=== PATIENT | female | born 1985 | race Caucasian/White ===

== ENCOUNTER 2023-11-14 06:35 | Day surgery (SDC) | payer BC ==
[2023-11-14] VITALS (14 sets, daily range): BP systolic 109–143; BP diastolic 57–109
[~2023-11-14] VITALS: Ht 154.9 cm; Wt 127.1 kg
[~2023-11-14 06:35] MED LIST: HYDROCODONE-AC1 EA10 PO; IBUP600 PO; LEVSOD112 PO; ONDA4ODT MM; PROAIR RESPICL90 MCG INH; Vitamin D1000 UNI1 PO
[2023-11-14] MEDS ORDERED: Lactated Ringer's 1,000 ML IV SCH (06:50)
[2023-11-14] MEDS ORDERED: CeFAZolin Sodium 3,000 MG in NS 100 ML IV SCH (06:50)
[2023-11-14] MEDS ORDERED: Bupivacaine 0.5% HCl 5 MG/ML 30MLVIAL ONE (07:08)
--- NOTE | 2023-11-14 07:24 | NUR ---
Ambulatory in Day SurgeryPre-Op teaching done. Pt verbalizes understanding. History, Chart, Medications and Allergies reviewed before start of procedure.Patient confirms NPO status and agrees with scheduled surgery. Patient States Post-Procedure ride home has been arranged.
[2023-11-14] MEDS ORDERED: propofoL 100 ML IV ONE (08:36)
[2023-11-14] MEDS ORDERED: Rocuronium Bromide 10 MG/ML 5ML Injection IV ONE (08:41)
[2023-11-14] MEDS ORDERED: FentaNYL Citrate 50 MCG/ML 2 ML Injection ONE ×2 (08:42→11:01)
[2023-11-14] MEDS ORDERED: Midazolam HCl 1MG / ML 2ML Vial ONE (08:42)
[2023-11-14] MEDS ORDERED: Dexamethasone Sod Phos 10 MG/ML 1ML VIAL ONE (09:14)
[2023-11-14] MEDS ORDERED: Ondansetron HCl 2 MG / ML 2ML Vial ONE ×2 (09:14→11:00)
[2023-11-14] MEDS ORDERED: Ketorolac Tromethamine 30mg Vial ONE (09:14)
[2023-11-14] MEDS ORDERED: Sugammadex Sodium 200 MG/2ML SDV (100 MG/ML) ONE (09:14)
[2023-11-14] MEDS ORDERED: Labetalol HCL 5 MG/ML 4ML Injection (Single Dose) ONE (09:34)
[2023-11-14] MEDS ORDERED: propofoL 40 ML IV ONE (09:53)
[2023-11-14] MEDS ORDERED: HYDROcodone 5-APAP 325 TAB PO PRN (10:45)
--- NOTE | 2023-11-14 11:25 | NUR ---
PT TO DAY SURGERY STEP DOWN FROM PACU, BEDSIDE REPORT RECEIEVED. PT IS SLEEPY, BUT RESPONDS TO VOICE AND ABLE TO MOVE SELF IN BED. VSS. AFEBRILE. PT HAS 4 ABD INCISIONS SITES THAT ARE CLOSED WITH STERI STRIPS AND ARE C/D/I. PT HAS NO COMPLAINTS AT THIS TIME.
--- NOTE | 2023-11-14 11:55 | NUR ---
ICE PACK MADE FOR PT. PT DECLINES IT ON HER INCISIONS AT THIS TIME. INCISIONS REMAIN C/D/I. PT AT BEDSIDE.
--- NOTE | 2023-11-14 12:03 | NUR ---
PT AWAKE, PO FLUIDS GIVEN.
--- NOTE | 2023-11-14 12:10 | NUR ---
REPORT OFF TO KINA ORLANDO
--- NOTE | 2023-11-14 12:59 | NUR ---
REPORT TO YONG CASTANON.
--- NOTE | 2023-11-14 13:06 | NUR ---
Discharge instructions reviewed with patient. Patient verbalizes understanding. Copy given to patient to take home. Patient States Post-Procedure ride home has been arranged.
--- NOTE | 2023-11-14 13:19 | NUR ---
Patient up to Ambulate independently. Gait steady.
--- NOTE | 2023-11-14 13:23 | NUR ---
Discharged via wheelchair to private car for ride home.
== END 2023-11-14 13:24 | disposition home or self-care (01) ==
LOC: ORSCMMR 06:35 → ORD 08:45 → ORSCMMR 13:24
PROVIDERS: Surgery
PROC: 0FT44ZZ Resection of Gallbladder, Percutaneous Endoscopic Approach (ICD-10-PCS; principal; 2023-11-14 08:45)
DX: K80.12 Calculus of gallbladder with acute and chronic cholecystitis without obstruction (principal); J45.909 Unspecified asthma, uncomplicated; E03.9 Hypothyroidism, unspecified; E66.01 Morbid (severe) obesity due to excess calories; Z68.43 Body mass index [BMI] 50.0-59.9, adult; E28.2 Polycystic ovarian syndrome; Z79.899 Other long term (current) drug therapy
CPT/HCPCS: 88304; A9270; J0690; J1100; J1885; J2250; J2405; J2704; J3010; J7120

== ENCOUNTER 2024-03-28 12:56 | Emergency (ER) | payer BC ==
[~2024-03-28] VITALS: Ht 154.9 cm; Wt 132.4 kg
[2024-03-28 14:39] LABS: BASOPHILS ABSOLUTE AUTO 0.03 K/mm3 (0.00-0.23); BASOPHILS PERCENT AUTO 0 % (0-2); EOSINOPHILS ABSOLUTE AUTO 0.19 K/mm3 (0.00-0.68); EOSINOPHILS PERCENT AUTO 2 % (0-6); Hematocrit 36.7 % (33.0-51.0); IMMATURE GRAN ABSOLUTE AUTO 0.02 K/mm3 (0.00-0.10); IMMATURE GRAN PERCENT AUTO 0 % (0-1); LYMPHOCYTES ABSOLUTE AUTO 2.56 K/mm3 (0.84-5.20); LYMPHOCYTES PERCENT AUTO 31 % (21-46); MONOCYTES ABSOLUTE AUTO 0.51 K/mm3 (0.16-1.47); MONOCYTES PERCENT AUTO 6 % (4-13); Mean Corpuscular HGB 26.7 pg (26.0-34.0); Mean Corpuscular HGB Conc 32.7 g/dL (31.5-36.5); Mean Corpuscular Volume 82 fL (80-100); NEUTROPHILS ABSOLUTE AUTO 4.91 K/mm3 (1.96-9.15); NEUTROPHILS PERCENT AUTO 60 % (41-73); Platelet Count 329 K/mm3 (150-400); RDW Coefficient Variation 17.1 % (11.7-14.2); RDW Standard Deviation 50.8 fL (35.1-46.3); Red Blood Cell Count 4.49 M/mm3 (3.80-5.20); White Blood Cell Count 8.22 K/mm3 (4.00-11.30)
[2024-03-28 14:50] LABS: Albumin/Globulin Ratio 0.8 (0.8-1.8); Bilirubin, Total 0.3 mg/dL (0.1-1.0); Bun/Creatinine Ratio 17.3 (12.0-20.0); Calcium, Blood 9.1 mg/dL (8.5-10.1); Creatinine, Blood 0.81 mg/dL (0.40-1.00); Globulin, Blood 3.9 g/dL (2.2-4.0); Potassium, Blood 3.5 mmol/L (3.5-5.5); Total Protein, Blood 6.9 g/dL (6.4-8.2)
== END 2024-03-28 16:20 | disposition home or self-care (01) ==
LOC: ER 12:56
PROVIDERS: Student in an Organized Health Care Education/Training Program
DX: O20.0 Threatened abortion (principal); Z3A.01 Less than 8 weeks gestation of pregnancy; Z79.890 Hormone replacement therapy; Z79.899 Other long term (current) drug therapy
CPT/HCPCS: 76801; 76817; 80053; 84702; 84703; 85025; 86900; 86901; 99284-25